=== PATIENT | male | born 1945 | race Caucasian/White ===

== ENCOUNTER 2022-07-22 10:24 | Outpatient (REF) | payer OTHER, SELFPAY ==
[2022-07-22 11:59] LABS: Hematocrit 38.6 % (42.0-52.0); Hemoglobin 13.7 g/dl (14.0-18.0); Mean Corpuscular HGB Conc 35.5 g/dl (31.0-36.0); Mean Corpuscular Hemoglobin 35.3 pg (27.0-33.0); Mean Corpuscular Volume 99.5 fL (80.0-98.0); Mean Platelet Volume 9.9 fL (9.4-12.4); Platelet Count 146 X10*3/uL (160-400); Red Blood Count 3.88 X10*6/uL (4.60-5.80); Red Cell Distribution Width 14.4 % (11.0-16.0); White Blood Count 4.5 X10*3/uL (4.8-10.8)
[2022-07-22 12:08] LABS: INTERNATIONAL NORM RATIO 1.1 (0.9-1.1); Prothrombin Time 12.7 SEC (10.0-13.1)
[2022-07-22 12:11] LABS: Estimated Average Glucose 148 mg/dL; Hemoglobin A1c % 6.8 %
[2022-07-24 07:25] LABS: HBS Num1 0.35 mIU/mL (0-7.99); HBc Num1 0.07 S/CO (0.00-0.79); HBsAGNum1 0.35 S/CO (0.00-0.99); Hepatitis B Core Antibody Nonreactive (Nonreactive); Hepatitis B Surface Antigen Negative (Negative); ~HepC Num1 0.09 S/CO (0.00-0.79); ~Hepatitis B Surface Antibody NONREACTIVE (Nonreactive); ~Hepatitis C Antibody Nonreactive (Nonreactive)
[2022-07-24 07:56] LABS: Hepatitis A Antibody IgG REACTIVE (Nonreactive); ~Hepatitis A Antibody IgG 1.94 S/CO (0.00-0.99)
[2022-07-24 23:04] LABS: Immunoglobulin A 785 mg/dL (70-320)
[2022-07-25 09:19] LABS: Transglutaminase IgA <1.0 U/mL
== END 2022-07-22 10:25 | disposition home or self-care (01) ==
LOC: HO.LAB 10:24
PROVIDERS: PCP Internal Medicine; Visit Provider Internal Medicine
DX: K74.60 Unspecified cirrhosis of liver (principal); K76.82 Hepatic encephalopathy; E66.9 Obesity, unspecified; E11.9 Type 2 diabetes mellitus without complications; I50.9 Heart failure, unspecified
CPT/HCPCS: 36415; 82784; 83036; 85027; 85610; 86364; 86704; 86706; 86708; 86803; 87340

== ENCOUNTER 2022-09-02 13:38 | Outpatient (AMB) | payer OTHER, SELFPAY ==
--- NOTE | 2022-09-02 13:42 | MHC.OFFVIS ---
Intake Vital Signs 09/02/22 13:45 Height 5 ft 5 in Weight 282 lb 3.067 oz BMI 47.0 BP 116/56 L Blood Pressure Location Lt brachial Position Sitting Pulse 94 Intake Visit Reasons: 6 week fu-leave as 30min pro req Intake Note: Luis presents in the office as a 6 week follow up. CC: is with him - she states that he has a lot of gas and cramps in his right hand that happen often. She is not sure if this is connected. 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 07/22/22: Had weight loss surgery 4 years ago during which cirrhosis of the liver was discovered. Has been seeing Dr Pascual, here for second opinion. 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 No hx of significant drinking. No fam or personal hx of autoimmune disease, iron overload, early pulmonary or neuropsychiatric diseases. Pt had first episode of hepatic encephalopathy 2 years ago for which he required hosp admission as well. Has been on lactulose. Does not recall developing ascites but does report significant leg edema on most days assoc with shortness of breath on exertion. Last EGD was 4 years ago prior to his surgery. Last US was 2 years ago when he had the hospitalisation. He also sees Dr Desir for cardiomyopathy. We do not have records to ascertain whether he has ischemic cardiomyopathy vs non-ischemic and if LV failure vs RV (raj as he report significant sleep apnea). Family hx: etOH cirrhosis in brother Records reviewed. Has large splenorenal shunt based on previous imaging at [facility]. If HE difficult to control with meds, may need IR referral for shunt embolization eval. However will need EGD before that for variceal surveillance. 09/02/22: Reports has been getting worsening shortness of breath especially on exertion and will be seeing a electronic integrated systems mechanic for further evaluation. Otherwise no gastrointestinal sx. Taking lactulose regularly now and has been having 2 BMs per day consistently. Reports improvement in alertness levels. Labs reviewed, somehow CMP and iron studies not processed. However remaining labs reassuring, no chronic hepatitis. Thrombocytopenia consistent with portal HTN. PFSH Surgical History History of esophagogastroduodenoscopy (EGD) History of weight loss surgery Hx of appendectomy Hx of cholecystectomy Family History Mother HTN (hypertension) Social History Household Members: Spouse Patient Tobacco Use Status: Never used Tobacco Review of Systems Const All systems reviewed & are unremarkable except as noted in HPI and below Physical Exam Vital Signs: Last Vital Signs Pulse 94 09/02/22 13:45 BP 116/56 L 09/02/22 13:45 BMI result Body Mass Index 47.0 Gen Appear: NAD HEENT: No scleral icterus Chest: CTA CVS: Regular S1/S2 no murmurs Abd: soft, nontender, nondistended, no shifting dullness to percussion, bowel sounds active Ext: peripheral edema bilaterally L leg > R leg Neuro: A/Ox3, asterixis + Derm: Spider angioma on chest and palmar erythema noted Assessment & Plan Assessment & Plan (1) Cirrhosis: Code(s): K74.60 - Unspecified cirrhosis of liver (2) Hepatic encephalopathy: Code(s): K76.82 - Hepatic encephalopathy (3) Obesity: Code(s): E66.9 - Obesity, unspecified (4) Heart failure: Code(s): I50.9 - Heart failure, unspecified (5) Diabetes: Code(s): E11.9 - Type 2 diabetes mellitus without complications Plan 1. Decompensated cirrhosis Etiology likely MAFLD/DIALLO given obesity, T2DM and HTN; in the absence of significant etOH use. Records from Dr Desir's office pending to determine if has significant R sided heart failure that could have led to cardiac cirrhosis. HE much better controlled. US Abd not booked yet. Also due for EGD for variceal surveillance. Plan: - Pt and report that they are unsure if further testing beyond consultation will be covered by their insurance and would like to check with their insurance provider before booking US Abd and EGD. - Advised that can get US abd for HCC screening at [facility] as well, and have them fax a copy to our office - May also need to adjust diuretics based on those results - For EGD coverage, pt or will call once they have more information. - Unable to calculate MELD as CMP not processed. Will await call back re insurance coverage, to book EGD and follow up visit Coding Level of Care Code Est Pt Level 4 (24781) Diagnoses Cirrhosis K74.60 Hepatic encephalopathy K76.82 Obesity E66.9 Heart failure I50.9 Diabetes E11.9
[2022-09-02 13:45] VITALS: BP 116/56; PULSE 94; BMI 47.0
== END 2022-09-02 14:35 | disposition home or self-care (01) ==
PROVIDERS: PCP Internal Medicine; Visit Provider Internal Medicine
DX: K74.60 Unspecified cirrhosis of liver (principal); K76.82 Hepatic encephalopathy; E66.9 Obesity, unspecified; I50.9 Heart failure, unspecified; E11.9 Type 2 diabetes mellitus without complications
CPT/HCPCS: 99214

== ENCOUNTER → 2022-09-02 13:38 | Outpatient (BNVA) | payer OTHER, SELFPAY | PROVIDERS: PCP Internal Medicine; Visit Provider Internal Medicine ==

== ENCOUNTER 2022-11-15 12:53 | Outpatient (REF) | payer OTHER, SELFPAY ==
--- NOTE | ~2022-11-15 | US_ITS ---
EXAMINATION: US ABDOMEN COMPLETE CLINICAL INFORMATION: Unspecified cirrhosis of liver. COMPARISON: None available. TECHNIQUE: Real-time imaging of the abdominal viscera. Severely limited visualization due to bowel gas. FINDINGS: PANCREAS: Poorly visualized. ABDOMINAL AORTA: Poorly visualized. INFERIOR VENA CAVA: Visualized portions are normal. LIVER: Diffuse increase in echogenicity and heterogeneity of the liver with a nodular hepatic contour, characteristic of primary hepatocellular disease, possibly due to hepatic steatosis and/or cirrhosis and severely limits visualization. GALLBLADDER: Surgically absent. COMMON BILE DUCT: Normal in caliber measuring 0.6 cm in diameter. RIGHT KIDNEY: No hydronephrosis. No renal calculi. Limited visualization. The kidney measures 12.3 cm in maximum dimension. LEFT KIDNEY: No hydronephrosis. No renal calculi. Limited visualization. The kidney measures 11.0 cm in maximum dimension. SPLEEN: Splenomegaly. The spleen measures 13.4 cm in maximum dimension. FREE FLUID: None. ADDITIONAL FINDINGS: Incidental note of prominent vascular structures in the left upper quadrant, possibly splenorenal varices, difficult to evaluate due to limited visualization. US/US abdomen complete IMPRESSION: 1. Diffuse increase in echogenicity and heterogeneity of the liver with a nodular hepatic contour, characteristic of primary hepatocellular disease, possibly due to hepatic steatosis and/or cirrhosis and severely limits visualization. 2. Splenomegaly. 3. Gallbladder surgically absent. 4. Incidental note of prominent vascular structures in the left upper quadrant, concerning for splenorenal varices, difficult to evaluate due to limited visualization. Dedicated CT scan or MRI recommended for further evaluation. This study was presented today, 11/20/2022 at 12:00 PM for interpretation. PSA staff will provide results to referring provider at this time.
== END 2022-11-15 12:54 | disposition home or self-care (01) ==
LOC: HO.US 12:53
PROVIDERS: PCP Internal Medicine; Visit Provider Internal Medicine
DX: K74.60 Unspecified cirrhosis of liver (principal)
CPT/HCPCS: 76700

== ENCOUNTER 2022-12-10 11:18 | Day surgery (SDC) | payer MEDICARE, SELFPAY ==
--- NOTE | 2022-12-09 08:31 | HO.ANESPROP2 ---
Documented by User: Radha Tineo NP 12/09/22 11:49 HPI - Anesthesia Eval Consult details Narrative: 77yo M for Upper Endoscopy Cirrhosis ? d/t DIALLO. On lactulose, spironolactone Follows [facility] for CHF. Last seen 11/11/22. Cardiac stable. Defers to pulmo for chronic AYALA and ? narcoleptic symptoms Follows outside pulmo. Last seen 11/19/22. PFT nml, nml CXR, ? narcolepsy vs poorly treated RIK - pending testing [facility] Active Problems Active Problems: All Active Problems (Updated 12/06/22 @ 10:59 by Callie Scott, KIM) Diabetes (Acute) Heart failure (Acute) Obesity (Acute) Hepatic encephalopathy (Acute) Cirrhosis (Acute) Past Medical History Medical History Periodic limb movement disorder Chronic rhinitis Anxiety HTN (hypertension) Sleep apnea Spinal stenosis BPH (benign prostatic hyperplasia) Dilated aortic root Faintness Osteoarthritis of knee Lumbar radicular pain Pulmonary nodules Chronic pain of left knee Morbid obesity Vitamin D deficiency Anemia Intestinal malabsorption following gastrectomy Chronic pancreatitis Ureteral calculus, left DIALLO (nonalcoholic steatohepatitis) CHF (congestive heart failure) Diabetes Family History Family History Mother HTN (hypertension) Surgical History Surgical History History of weight loss surgery Hx of appendectomy Hx of cholecystectomy History of esophagogastroduodenoscopy (EGD) Social History Social History Household Members: Spouse Patient Tobacco Use Status: Never used Tobacco Use of substances other than those prescribed or required for medical reasons: No Advance Directives: No Advance Directives Information Provided: Yes Meds Allergies Allergy/AdvReac Type Severity Reaction Status Date / Time No Known Allergies Allergy Verified 12/10/22 12:19 Home Medications Medication Instructions Recorded Confirmed Last Taken Type atorvastatin 10 mg tablet 10 mg PO DAILY 07/22/22 12/10/22 12/09/22 History carvedilol 3.125 mg tablet 3.125 mg PO BID 07/22/22 12/10/22 12/09/22 History citalopram 40 mg tablet 40 mg PO DAILY 07/22/22 12/10/22 12/09/22 History empagliflozin 10 mg tablet 10 mg PO DAILY 07/22/22 12/10/22 12/09/22 History (Jardiance) gabapentin 300 mg capsule 300 mg PO TID 07/22/22 12/10/22 12/09/22 History glipizide 2.5 mg tablet, extended 2.5 mg PO DAILY 07/22/22 12/10/22 12/09/22 History release 24 hr lactulose 10 gram/15 mL oral 30 ml PO TID 07/22/22 12/10/22 12/09/22 History solution (Enulose) spironolactone 50 mg tablet 50 mg PO DAILY 07/22/22 12/10/22 12/09/22 History tamsulosin 0.4 mg capsule 0.8 mg PO DAILY 07/22/22 12/10/22 12/09/22 History furosemide 20 mg tablet 60 mg PO DAILY 09/02/22 12/10/22 12/09/22 History Exam Exam Date and Time: December 09, 2022 0831 Pertinent Lab Results Pertinent Lab Results: Laboratory Tests 07/22/22 11:40 WBC 4.5 L Hgb 13.7 L Hct 38.6 L Plt Count 146 L Narrative Narrative: US abdomen complete 11/2022 IMPRESSION: 1. Diffuse increase in echogenicity and heterogeneity of the liver with a nodular hepatic contour, characteristic of primary hepatocellular disease, possibly due to hepatic steatosis and/or cirrhosis and severely limits visualization. 2. Splenomegaly. 3. Gallbladder surgically absent. 4. Incidental note of prominent vascular structures in the left upper quadrant, concerning for splenorenal varices, difficult to evaluate due to limited visualization. Dedicated CT scan or MRI recommended for further evaluation. EKG 11/2021 NSR @ 75 Prolonged QT ECHO 11/2021 1. Contrast was used 2. Nml LV chamber size. Mild concentric LVH. Nml regional wall motion. Nml LV systolic function. LVEF 60-65%. Grade 2 DD 3. RV nml in size and function 4. Severely dilated LA 5. Mild mitral stenosis. Trace mitral regurg 6. Ascending aota dilatation. (4.1cm) PFT 08/2022 Nml Assessment and Plan Assessment Anesthesia Assessment: Chart Reviewed Documented by User: Jeanine Black MD 12/10/22 12:55 PMFSH Past Medical History Medical History Periodic limb movement disorder Chronic rhinitis Anxiety HTN (hypertension) Sleep apnea Spinal stenosis BPH (benign prostatic hyperplasia) Dilated aortic root Faintness Osteoarthritis of knee Lumbar radicular pain Pulmonary nodules Chronic pain of left knee Morbid obesity Vitamin D deficiency Anemia Intestinal malabsorption following gastrectomy Chronic pancreatitis Ureteral calculus, left DIALLO (nonalcoholic steatohepatitis) CHF (congestive heart failure) Diabetes Family History Family History Mother HTN (hypertension) Family history of problems with anesthesia: No Surgical History Surgical History History of weight loss surgery Hx of appendectomy Hx of cholecystectomy History of esophagogastroduodenoscopy (EGD) History of Problems with Anesthesia: No Social History Social History Household Members: Spouse Patient Tobacco Use Status: Never used Tobacco Use of substances other than those prescribed or required for medical reasons: No Advance Directives: No Advance Directives Information Provided: Yes Meds Allergies Allergy/AdvReac Type Severity Reaction Status Date / Time No Known Allergies Allergy Verified 12/10/22 12:19 Home Medications Medication Instructions Recorded Confirmed Last Taken Type atorvastatin 10 mg tablet 10 mg PO DAILY 07/22/22 12/10/22 12/09/22 History carvedilol 3.125 mg tablet 3.125 mg PO BID 07/22/22 12/10/22 12/09/22 History citalopram 40 mg tablet 40 mg PO DAILY 07/22/22 12/10/22 12/09/22 History empagliflozin 10 mg tablet 10 mg PO DAILY 07/22/22 12/10/22 12/09/22 History (Jardiance) gabapentin 300 mg capsule 300 mg PO TID 07/22/22 12/10/2223 History glipizide 2.5 mg tablet, extended 2.5 mg PO DAILY 07/22/22 12/10/22 12/09/22 History release 24 hr lactulose 10 gram/15 mL oral 30 ml PO TID 07/22/22 12/10/22 12/09/22 History solution (Enulose) spironolactone 50 mg tablet 50 mg PO DAILY 07/22/22 12/10/22 12/09/22 History tamsulosin 0.4 mg capsule 0.8 mg PO DAILY 07/22/22 12/10/22 12/09/22 History furosemide 20 mg tablet 60 mg PO DAILY 09/02/22 12/10/22 12/09/22 History Exam Airway Mallampati Class: III TM Dist: >3cm Neck ROM: Full Denture: Upper and Lower Lungs: scattered fine crackles at the bases Assessment and Plan Assessment Anesthesia Assessment: Anesthesia Plan Discussed Final Anesthetic Review Family History of Problems with Anesthesia: No History of Problems with Anesthesia: No NPO: Yes ASA Class: III Final Preanesthetic Review: No Changes in Pt Med Stat, Meds/Allgs Chart Reviewed, Consent Obtained/Reviewed and Anes Risks/Benef Reviewed Patient Risk: Intermediate Procedure Risk: Low Anesthetic Plan Anesthetic Plan: MAC: Disposition: Standard PACU
[2022-12-10 11:43] VITALS: BMI 46.6
[2022-12-10 12:14] VITALS: BP 126/57; PULSE 70; RESP 16; TEMP 36.2; O2SAT 100
[2022-12-10] MEDS: Lactated Ringers 1,000 ML 50 ML IVCONT (12:23)
[2022-12-10 12:26] LABS: Glucose, Whole Blood 140 mg/dL (60-115)
--- NOTE | 2022-12-10 12:52 | MHC.SHP ---
Pre-Procedural Eval Section A Date of Service: 12/10/22 Section B Chief Complaint: Cirrhosis Details of Present Illness: PMH: heart failure obesity BMI 46 RIK decompensated cirrhosis (hepatic encephalopathy) former smoker Relevant Social History: None Present Medications: see Short Stay Collaborative assessment Allergies: Allergies Allergy/AdvReac Type Severity Reaction Status Date / Time No Known Allergies Allergy Verified 12/10/22 12:19 Review of Systems Review of Systems Comment: 10 point ROS negative Exam Exam Comment: Gen appear: No acute distress HEENT: no icterus Chest: No overt resp distress Abd: soft, nontender, nondistended Psych: Stable affect, answering questions appropriately Neuro: A/Ox3 noted to move all extremities spontaneously Ext: no peripheral edema Plan Diagnosis/Plan: Unchanged I have reviewed the history and physical and performed a pertinent physical examination on my patient. No changes have occurred unless specified. Time Spent With Patient Time: Total time managing care of this patient today ____ minutes.
--- NOTE | 2022-12-10 12:53 | P.OP_ITS ---
Operative Note Operative Note Date of Service: 12/10/22 Narrative: Procedure: Esophagogastroduodenoscopy Endoscopist: Rachele Andrea MD Indication: Cirrhosis Anesthesia Provider: Dr Pj Black Anesthesia Type: MAC ?? EGD Procedure:?? The procedure, indications, preparation and potential complications were reviewed with the patient, who indicated understanding and gave written informed consent to proceed. A physical exam was performed. The endoscope was introduced through the mouth, and advanced to the second part of duodenum. The mucosa was carefully examined on slow withdrawal of the endoscope. The patient tolerated the procedure well. There were no immediate complications.? ? EGD Findings:? * Esophagus:? Linear erosions measuring > 5mm were noted at the GE junction. The Z line was at 40 cm. A moderate sized hiatal hernia was noted. * Stomach:? Diffuse congestion and erythema in mosaic pattern consistent with portal hypertensive gastropathy was noted in the whole stomach. Retroflexion in the fundus showed Hill grade III hiatal hernia. * Duodenum:? Normal mucosa was noted in the whole of the examined duodenum. EGD Impressions:? * Grade B esophagitis * Hiatal hernia * Portal hypertensive gastropathy * Normal duodenum ?? Recommendations:?? * Start PPI therapy. * Avoid NSAIDs. * Cont carvedilol 3.125 BID * Repeat EGD in 2 years for variceal surveillance given decompensated cirrhosis Above has been reviewed with the patient.
[2022-12-10 13:31] VITALS: BP 124/61; PULSE 69; RESP 13; TEMP 36.6; O2SAT 100
[2022-12-10 13:46] VITALS: BP 120/53; PULSE 73; RESP 18; TEMP 36.6; O2SAT 98
== END 2022-12-10 14:19 | disposition home or self-care (01) ==
PROVIDERS: PCP Internal Medicine; Visit Provider Internal Medicine
PROC: 0DJ08ZZ Inspection of Upper Intestinal Tract, Via Natural or Artificial Opening Endoscopic (ICD-10-PCS; CPT 43235; principal; 2022-12-10 12:50)
DX: K74.60 Unspecified cirrhosis of liver (principal); K76.82 Hepatic encephalopathy; K75.81 Nonalcoholic steatohepatitis (NASH); K44.9 Diaphragmatic hernia without obstruction or gangrene; K20.80 Other esophagitis without bleeding; K76.6 Portal hypertension; K31.89 Other diseases of stomach and duodenum; I11.0 Hypertensive heart disease with heart failure; I50.9 Heart failure, unspecified; E66.01 Morbid (severe) obesity due to excess calories; Z68.42 Body mass index [BMI] 45.0-49.9, adult; R16.1 Splenomegaly, not elsewhere classified; G47.33 Obstructive sleep apnea (adult) (pediatric); E11.9 Type 2 diabetes mellitus without complications; Z79.84 Long term (current) use of oral hypoglycemic drugs; Z79.899 Other long term (current) drug therapy; Z90.49 Acquired absence of other specified parts of digestive tract; Z98.890 Other specified postprocedural states
CPT/HCPCS: 43235; 82947; J3010

== ENCOUNTER → 2022-12-10 11:18 | Outpatient (BNV) | payer MEDICARE, SELFPAY | PROVIDERS: PCP Internal Medicine; Visit Provider Internal Medicine | DX: K74.69 Other cirrhosis of liver (principal); K76.6 Portal hypertension; K20.90 Esophagitis, unspecified without bleeding | CPT/HCPCS: 43235 ==

== ENCOUNTER 2023-03-21 14:26 | Outpatient (AMB) | payer MEDICARE, SELFPAY ==
--- NOTE | 2023-03-21 14:38 | A.OFFVIS_ITS ---
Intake Vital Signs 03/21/23 14:40 Height 5 ft 5 in Weight 276 lb BMI 45.9 BP 107/41 L Blood Pressure Location Lt brachial Position Sitting Pulse 74 Intake Visit Reasons: f/u Intake Note: Patient follow up for Cirrhosis and EGD results. Patient cc: abdominal discomfort, GERD, and denies any other GI issues. Agricultural Researcher Required: No Accompanied by: Spouse Allergies No Known Allergies Allergy (Verified 03/21/23 14:36) HPI HPI Comments History of Present Illness Details 77y.o M with PMH of reported heart failu re, obesity BMI 46, RIK and recent dx of decompensated cirrhosis (hepatic encephalopathy), former smoker. 07/22/22: Had weight loss surgery 4 years ago during which cirrhosis of the liver was discovered. Has been seeing Dr Pascual, here for second opinion. 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 No hx of significant drinking. No fam or personal hx of autoimmune disease, iron overload, early pulmonary or neuropsychiatric diseases. Pt had first episode of hepatic encephalopathy 2 years ago for which he required hosp admission as well. Has been on lactulose. Does not recall developing ascites but does report significant leg edema on most days assoc with shortness of breath on exertion. Last EGD was 4 years ago prior to his surgery. Last US was 2 years ago when he had the hospitalisation. He also sees Dr Desir for cardiomyopathy. We do not have records to ascertain whether he has ischemic cardiomyopathy vs non-ischemic and if LV failure vs RV (raj as he report significant sleep apnea). Family hx: etOH cirrhosis in brother Records reviewed. Has large splenorenal shunt based on previous imaging at [facility]. If HE difficult to control with meds, may need IR referral for shunt embolization eval. However will need EGD before that for variceal surveillance. 09/02/22: Reports has been getting worsening shortness of breath especially on exertion and will be seeing a occupational psychologist for further evaluation. Otherwise no gastrointestinal sx. Taking lactulose regularly now and has been having 2 BMs per day consistently. Reports improvement in alertness levels. Labs reviewed, somehow CMP and iron studies not processed. However remaining labs reassuring, no chronic hepatitis. Thrombocytopenia consistent with portal HTN. 12/10/22: EGD EGD Impressions:? * Grade B esophagitis * Hiatal hernia * Portal hypertensive gastropathy * Normal duodenum 03/21/23: Was admitted to [facility] in Dec 2022 for hepatic encephalopathy thought to be from UTI. Admitted for 5 days - was given ABx and lactulose dose was increased. reports this is his 1st hospitalization for hepatic encephalopathy. To note, patient has a known splenorenal shunt based on ultrasound and previous CAT scans. Current medications: Furosemide 60 mg Spironolactone 50 mg Lactulose 45+ 45+ 30 mL Patient reports discontinuation of carvedilol for more than 3 months, unaware of why it was discontinued. Today, reports that seems a bit off than his baseline. Does not report abd pain, nausea, vomiting, change in bowel habits. Has been taking his medications as above. [facility] Medical History Periodic limb movement disorder Chronic rhinitis Anxiety HTN (hypertension) Sleep apnea Spinal stenosis BPH (benign prostatic hyperplasia) Dilated aortic root Faintness Osteoarthritis of knee Lumbar radicular pain Pulmonary nodules Chronic pain of left knee Morbid obesity Vitamin D deficiency Anemia Intestinal malabsorption following gastrectomy Chronic pancreatitis Ureteral calculus, left DIALLO (nonalcoholic steatohepatitis) CHF (congestive heart failure) Diabetes Surgical History History of weight loss surgery Hx of appendectomy Hx of cholecystectomy History of esophagogastroduodenoscopy (EGD) Family History Mother HTN (hypertension) Social History Household Members: Spouse Patient Tobacco Use Status: Never used Tobacco Review of Systems Const All systems reviewed & are unremarkable except as noted in HPI and below Physical Exam Vital Signs: Last Vital Signs Pulse 74 03/21/23 14:40 BP 107/41 L 03/21/23 14:40 BMI result Body Mass Index 45.9 Gen Appear: NAD, presenting in wheelchair HEENT: No scleral icterus Chest: CTA Abd: soft, nontender, nondistended, Ext: peripheral edema bilaterally L leg > R leg Neuro: A/Ox3, asterixis + Derm: Spider angioma on chest and palmar erythema noted Assessment & Plan Assessment & Plan (1) Cirrhosis: Code(s): K74.60 - Unspecified cirrhosis of liver (2) Hepatic encephalopathy: Code(s): K76.82 - Hepatic encephalopathy (3) Obesity: Code(s): E66.9 - Obesity, unspecified (4) Heart failure: Code(s): I50.9 - Heart failure, unspecified (5) Diabetes: Code(s): E11.9 - Type 2 diabetes mellitus without complications Plan 1. Decompensated cirrhosis Etiology likely MAFLD/DIALLO given obesity, T2DM and HTN and possibly due to cardiac cirrhosis; in the absence of significant etOH use. Mild encephalopathy on exam today. Counseled on taking lactulose for goal 2-3 bowel movements per day. Also work on getting him rifaximin in addition to this. If has more than 2 admissions for encephalopathy with the next 6 months, low threshold to refer for IR evaluation for obliteration of splenorenal shunt. Plan: - continue lactulose, for goal 2-3 bowel movements every day - rifaximin 550 mg b.i.d. to be started, will see if PA needed - updated meld labs - will likely need to adjust diuretics, however will wait for BMP as above - patient also requests to get a urinalysis done, which has been ordered Follow-up in 8 weeks Orders: Orders Complete Blood Count no Diff 03/21/23 K74.60 - Unspecified cirrhosis of liver Comprehensive Met. Panel 03/21/23 K74.60 - Unspecified cirrhosis of liver Prothrombin Time INR 03/21/23 K74.60 - Unspecified cirrhosis of liver UA and rflx microscopic 03/21/23 N39.0 - Urinary tract infection, site not specified Medications: New rifaximin 550 mg PO BID 60 tabs 3RF 30 days K76.82 - Hepatic encephalopathy Coding Level of Care Code Est Pt Level 5 (10153) Diagnoses Cirrhosis K74.60 Hepatic encephalopathy K76.82 Obesity E66.9 Heart failure I50.9 Diabetes E11.9
[2023-03-21 14:40] VITALS: BP 107/41; PULSE 74; BMI 45.9
== END 2023-03-21 15:25 | disposition home or self-care (01) ==
PROVIDERS: PCP Internal Medicine; Visit Provider Internal Medicine
DX: K74.60 Unspecified cirrhosis of liver (principal); K76.82 Hepatic encephalopathy; E66.9 Obesity, unspecified; Z68.42 Body mass index [BMI] 45.0-49.9, adult; E11.9 Type 2 diabetes mellitus without complications
CPT/HCPCS: 99214

== ENCOUNTER 2023-03-21 14:26 | Outpatient (REF) | payer MEDICARE, SELFPAY ==
[2023-03-21 16:21] LABS: Hematocrit 38.4 % (42.0-52.0); Hemoglobin 13.6 g/dl (14.0-18.0); Mean Corpuscular HGB Conc 35.4 g/dl (31.0-36.0); Mean Corpuscular Volume 101.6 fL (80.0-98.0); Mean Platelet Volume 10.4 fL (9.4-12.4); Platelet Count 127 X10*3/uL (160-400); Red Blood Count 3.78 X10*6/uL (4.60-5.80); Red Cell Distribution Width 14.6 % (11.0-16.0); White Blood Count 4.7 X10*3/uL (4.8-10.8)
[2023-03-21 16:26] LABS: INTERNATIONAL NORM RATIO 1.2 (0.9-1.1); Prothrombin Time 14.2 SEC (11.1-13.3)
[2023-03-21 17:15] LABS: Alanine Aminotransferase 34 U/L (0-40); Albumin Level 2.9 g/dL (3.5-5.0); Alkaline Phosphatase 120 U/L (39-117); Anion Gap 11 (12-20); Aspartate Amino Transferase 39 U/L (5-37); Bilirubin Total 2.1 mg/dL (0.0-1.0); Blood Urea Nitrogen 21 mg/dL (9-16); Calcium 8.8 mg/dL (8.4-10.2); Carbon Dioxide 26 mmol/L (22-29); Chloride 104 mmol/L (96-108); Estimated Glomerular Filt Rate > 60; Glucose Random 221 mg/dL (60-115); Potassium 3.8 mmol/L (3.3-5.1); Sodium 137 mmol/L (135-145); Total Protein 5.8 g/dL (6.5-8.0)
[2023-03-21 17:45] LABS: Appearance Urine Clear; Color Urine Yellow; Glucose Urine UA >=1000 mg/dL (Negative); Leukocyte Esterase Urine Trace (Negative); Nitrite Urine Negative (Negative); Specific Gravity - Urine 1.015 (1.005-1.025); UMIC TRIGGER UA YES; Urine Blood Negative (Negative); Urine Ketones Negative (Negative); Urine Protein Negative (Neg-Trace)
[2023-03-21 17:47] LABS: Bacteria Urine None Seen (None Seen); Hyaline Casts Urine 0-2 /LPF (0-2); RBC Urine 0-2 /HPF (0-2); Squamous Epithelial Cell Urine 0-2 /HPF (0-2); WBC Urine 0-5 /HPF (0-5)
== END 2023-03-21 14:27 | disposition home or self-care (01) ==
LOC: HO.LAB 14:26
PROVIDERS: PCP Internal Medicine; Visit Provider Internal Medicine
DX: K74.60 Unspecified cirrhosis of liver (principal); N39.0 Urinary tract infection, site not specified; K21.9 Gastro-esophageal reflux disease without esophagitis; R10.9 Unspecified abdominal pain; E66.9 Obesity, unspecified; G47.33 Obstructive sleep apnea (adult) (pediatric); K76.82 Hepatic encephalopathy; I11.0 Hypertensive heart disease with heart failure; I50.9 Heart failure, unspecified; E11.9 Type 2 diabetes mellitus without complications; Z68.42 Body mass index [BMI] 45.0-49.9, adult
CPT/HCPCS: 36415; 80053; 81001; 85027; 85610; 99212

== ENCOUNTER 2023-05-02 10:51 | Outpatient (REF) | payer MEDICARE, SELFPAY ==
--- NOTE | ~2023-05-02 | US_ITS ---
EXAMINATION: US ABDOMEN COMPLETE CLINICAL INFORMATION: Unspecified cirrhosis of the liver. COMPARISON: Ultrasound abdomen complete 11/15/2022. TECHNIQUE: Real-time imaging of the abdominal viscera. Technically difficult study secondary to bowel gas and body habitus. FINDINGS: PANCREAS: Poorly visualized. ABDOMINAL AORTA: Poorly visualized. INFERIOR VENA CAVA: Visualized portions are normal. LIVER: Increased hepatic parenchymal heterogeneity and echogenicity could be associated with hepatocellular disease/hepatic steatosis and severely limits visualization. Right hepatic lobe measures 14.6 cm in sagittal dimension. Correlation with liver function tests and clinical exam recommended to determine further management. GALLBLADDER: Surgically absent. COMMON BILE DUCT: Not visualized. RIGHT KIDNEY: No hydronephrosis. No renal calculi. Limited visualization. The kidney measures 10.3 cm in maximum dimension. LEFT KIDNEY: No hydronephrosis. No renal calculi. Limited visualization. The kidney measures 9.7 cm in maximum dimension. SPLEEN: The spleen measures 12.3 cm in maximum dimension. FREE FLUID: None. US/US abdomen complete IMPRESSION: 1. Increased hepatic parenchymal heterogeneity and echogenicity could be associated with hepatocellular disease/hepatic steatosis and severely limits visualization. Correlation with liver function tests and clinical exam recommended to determine further management. 2. Gallbladder surgically absent.
[2023-05-02 13:39] LABS: Alanine Aminotransferase 24 U/L (0-40); Alkaline Phosphatase 146 U/L (39-117); Anion Gap 13 (12-20); Aspartate Amino Transferase 29 U/L (5-37); Bilirubin Total 2.6 mg/dL (0.0-1.0); Blood Urea Nitrogen 15 mg/dL (9-16); Calcium 8.7 mg/dL (8.4-10.2); Carbon Dioxide 25 mmol/L (22-29); Chloride 103 mmol/L (96-108); Cholesterol 110 mg/dL (<200); Estimated Glomerular Filt Rate > 60; Glucose Random 162 mg/dL (60-115); HDL Cholesterol 54 mg/dL (>40); Iron 172 mcg/dL (45-160); LDL Cholesterol Calculated 44 mg/dL (<100); Percent Iron Saturation 81 % (15-50); Potassium 3.5 mmol/L (3.3-5.1); Sodium 137 mmol/L (135-145); Total Iron Binding Capacity 212 mcg/dL (228-428); Total Protein 5.7 g/dL (6.5-8.0); Triglycerides 61 mg/dL (<150); Unsaturated Iron Binding 40 ug/dL
[2023-05-02 13:56] LABS: Ferritin 81 ng/mL (20-250)
[2023-05-02 15:15] LABS: Appearance Urine Clear; Color Urine Yellow; Glucose Urine UA >=1000 mg/dL (Negative); Leukocyte Esterase Urine Trace (Negative); Nitrite Urine Negative (Negative); PH 5.5 (5.0-9.0); Specific Gravity - Urine 1.025 (1.005-1.025); UMIC TRIGGER UA YES; Urine Blood Negative (Negative); Urine Ketones Negative (Negative); Urine Protein Negative (Neg-Trace)
[2023-05-02 15:18] LABS: Bacteria Urine None Seen (None Seen); Hyaline Casts Urine 0-2 /LPF (0-2); RBC Urine 0-2 /HPF (0-2); WBC Urine 0-5 /HPF (0-5)
== END 2023-05-02 10:52 | disposition home or self-care (01) ==
LOC: HO.US 10:51
PROVIDERS: PCP Internal Medicine; Visit Provider Internal Medicine
DX: Z13.6 Encounter for screening for cardiovascular disorders (principal); K74.60 Unspecified cirrhosis of liver
CPT/HCPCS: 36415; 76700; 80053; 80061; 81001; 82728; 83540

== ENCOUNTER 2023-05-23 14:18 | Outpatient (AMB) | payer MEDICARE, SELFPAY ==
--- NOTE | 2023-05-23 14:27 | A.OFFVIS_ITS ---
Vital Signs 05/23/23 14:35 Height 5 ft 5 in Weight 579 lb 13.051 oz BMI 96.5 BP 127/58 L Blood Pressure Location Lt brachial Position Sitting Pulse 90 Intake Visit Reasons: 8 weeks Cirrhosis Intake Note: Luis presents in the office as a 8 week follow up. CC: Wants to know if you approve the surgery coming up regarding the back. Do you want him still on zinc? concerns of US - he takes tums and magnesium and they want your thoughts on that. States that he has a reflux after eating that has been going on for some time. Accounts Specialist Required: No Allergies No Known Allergies Allergy (Verified 03/21/23 14:36) HPI Comments Details: 77y.o M with PMH of reported heart failure, obesity BMI 46, RIK and recent dx of decompensated cirrhosis (hepatic encephalopathy), former smoker. 07/22/22: Had weight loss surgery 4 years ago during which cirrhosis of the liver was discovered. Has been seeing Dr Pascual, here for second opinion. 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 No hx of significant drinking. No fam or personal hx of autoimmune disease, iron overload, early pulmonary or neuropsychiatric diseases. Pt had first episode of hepatic encephalopathy 2 years ago for which he required hosp admission as well. Has been on lactulose. Does not recall developing ascites but does report significant leg edema on most days assoc with shortness of breath on exertion. Last EGD was 4 years ago prior to his surgery. Last US was 2 years ago when he had the hospitalisation. He also sees Dr Desir for cardiomyopathy. We do not have records to ascertain whether he has ischemic cardiomyopathy vs non-ischemic and if LV failure vs RV (raj as he report significant sleep apnea). Family hx: etOH cirrhosis in brother Records reviewed. Has large splenorenal shunt based on previous imaging at [facility]. If HE difficult to control with meds, may need IR referral for shunt embolizat ion eval. However will need EGD before that for variceal surveillance. 09/02/22: Reports has been getting worsening shortness of breath especially on exertion and will be seeing a garment alteration examiner for further evaluation. Otherwise no gastrointestinal sx. Taking lactulose regularly now and has been having 2 BMs per day consistently. Reports improvement in alertness levels. Labs reviewed, somehow CMP and iron studies not processed. However remaining labs reassuring, no chronic hepatitis. Thrombocytopenia consistent with portal HTN. 12/10/22: EGD EGD Impressions:? * Grade B esophagitis * Hiatal hernia * Portal hypertensive gastropathy * Normal duodenum 03/21/23: Was admitted to [facility] in Dec 2022 for hepatic encephalopathy thought to be from UTI. Admitted for 5 days - was given ABx and lactulose dose was increase d. reports this is his 1st hospitalization for hepatic encephalopathy. To note, patient has a known splenorenal shunt based on ultrasound and previous CAT scans. Current medications: Furosemide 60 mg Spironolactone 50 mg Lactulose 45+ 45+ 30 mL Patient reports discontinuation of carvedilol for more than 3 months, unaware of why it was discontinued. Today, reports that seems a bit off than his baseline. Does not report abd pain, nausea, vomiting, change in bowel habits. Has been taking his medications as above. Addendum to previous note on 05/15/23: MELD-Na 12 -- 6% 90d mortality Child Latif Class B - 8 points Has upcoming spinal decompression procedure with Dr Nascimento. Reviewed risk assessment over the phone on 05/15/23 as above. Avoid excess IVF - albumin preferred. Avoid opiates, benzos. Avoid sudden BP shifts to protect kidney function. Ok to give platelets and Vit K if needed. 05/23/23: Here for routine follow up. No further episodes of encoephalopathy since last seen. Rifaximin not approved by insurance but has been started on Zn supplements. Reviewed that did review his risk assessment with Dr Nascimento on 05/14. He tells me that also seeing Cardiology for clearance. 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 Reports intermittent heartburn. Labs and US results reviewed. [facility] Medical History Periodic limb movement disorder Chronic rhinitis Anxiety HTN (hypertension) Sleep apnea Spinal stenosis BPH (benign prostatic hyperplasia) Dilated aortic root Faintness Osteoarthritis of knee Lumbar radicular pain Pulmonary nodules Chronic pain of left knee Morbid obesity Vitamin D deficiency Anemia Intestinal malabsorption following gastrectomy Chronic pancreatitis Ureteral calculus, left DIALLO (nonalcoholic steatohepatitis) CHF (congestive heart failure) Diabetes Surgical History History of weight loss surgery Hx of appendectomy Hx of cholecystectomy History of esophagogastroduodenoscopy (EGD) Family History Mother HTN (hypertension) Social History Household Members: Spouse Patient Tobacco Use Status: Never used Tobacco Review of Systems Const All systems reviewed & are unremarkable except as noted in HPI and below Physical Exam Vital Signs: Last Vital Signs Pulse 90 05/23/23 14:35 BP 127/58 L 05/23/23 14:35 BMI result Body Mass Index 96.5 Gen Appear: NAD, presenting in wheelchair HEENT: No scleral icterus Chest: CTA Abd: soft, nontender, nondistended, Ext: peripheral edema bilaterally L leg > R leg Neuro: A/Ox3, no asterixis Derm: Spider angioma on chest and palmar erythema noted Assessment & Plan Assessment & Plan (1) Cirrhosis: Code(s): K74.60 - Unspecified cirrhosis of liver Category: Medical (2) Hepatic encephalopathy: Code(s): K76.82 - Hepatic encephalopathy Category: Medical (3) Obesity: Code(s): E66.9 - Obesity, unspecified Category: Medical (4) Heart failure: Code(s): I50.9 - Heart failure, unspecified Category: Medical (5) Diabetes: Code(s): E11.9 - Type 2 diabetes mellitus without complications Category: Medical (6) GERD (gastroesophageal reflux disease): Code(s): K21.9 - Gastro-esophageal reflux disease without esophagitis Category: Medical Plan 1. Decompensated cirrhosis MELD-Na 12 -- 6% 90d mortality Child Latif Class B - 8 points Etiology likely MAFLD/DIALLO given obesity, T2DM and HTN and possibly due to car diac cirrhosis; in the absence of significant etOH use. No encephalopathy on exam today. Counseled on taking lactulose for goal 2-3 bowel movements per day. Zinc supplementation. Rifaximin not covered by insurance. If has more than 2 admissions for encephalopathy with the next 6 months, low threshold to refer for IR evaluation for obliteration of splenorenal shunt. US Abd reviewed. Will cont q6m screenings. Plan: - continue lactulose, for goal 2-3 bowel movements every day - Zinc supplementation - No change to diuretics at this time - Pt to check with Deputy Clerk Of Court re ? holding carvedilol. If no reservations from their standpoint recommend resuming coreg 6.25 BID - Next EGD for variceal surveillance due 11/2024 - Next US for HCC screening due 11/2023 - Omeprazole 20mg PO once daily started for GERD Follow-up in 4 months Medications: New omeprazole 20 mg PO DAILY 90 caps 0RF Coding Level of Care Code Est Pt Level 5 (97181) Diagnoses Cirrhosis K74.60 Hepatic encephalopathy K76.82 Obesity E66.9 Heart failure I50.9 Diabetes E11.9 GERD (gastroesophageal reflux disease) K21.9
[2023-05-23 14:35] VITALS: BP 127/58; PULSE 90; BMI 96.5
== END 2023-05-23 15:03 | disposition home or self-care (01) ==
PROVIDERS: PCP Internal Medicine; Visit Provider Internal Medicine
DX: K74.60 Unspecified cirrhosis of liver (principal); K76.82 Hepatic encephalopathy; I50.9 Heart failure, unspecified; K21.9 Gastro-esophageal reflux disease without esophagitis; E11.9 Type 2 diabetes mellitus without complications
CPT/HCPCS: 99214

== ENCOUNTER → 2023-05-23 14:18 | Outpatient (BNVA) | payer MEDICARE, SELFPAY | PROVIDERS: PCP Internal Medicine; Visit Provider Internal Medicine | DX: K74.60 Unspecified cirrhosis of liver (principal); K76.82 Hepatic encephalopathy; K21.9 Gastro-esophageal reflux disease without esophagitis; E66.9 Obesity, unspecified; I50.9 Heart failure, unspecified; E11.9 Type 2 diabetes mellitus without complications; Z68.45 Body mass index [BMI] 70 or greater, adult | CPT/HCPCS: 99212 ==

== ENCOUNTER 2023-07-02 08:49 | Outpatient (AMB) | payer MEDICARE, SELFPAY ==
--- NOTE | 2023-07-02 08:52 | MHC.OFFVIS ---
Vital Signs 07/02/23 08:53 Height 5 ft 5 in Weight 260 lb 2.327 oz BMI 43.3 BP 122/59 L Blood Pressure Location Lt brachial Position Sitting Pulse 89 Intake Visit Reasons: 2 week follow up 30 mins Intake Note: Luis presents in the office as a 2 week follow up. CC: Lactulose increased from last ED stay - states that he was told to do is four times a day. Very loose bowel movements at this time. He has issues with vomiting. [facility] records. Urology Nurse Required: No Allergies No Known Allergies Allergy (Verified 07/02/23 08:56) HPI Comments Details: 77y.o M with PMH of reported heart failure, obesity BMI 46, RIK and recent dx of decompensated cirrhosis (hepatic encephalopathy), former smoker. 07/22/22: Had weight loss surgery 4 years ago during which cirrhosis of the liver was discovered. Has been seeing Dr Pascual, here for second opinion. 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 No hx of significant drinking. No fam or personal hx of autoimmune disease, iron overload, early pulmonary or neuropsychiatric diseases. Pt had first episode of hepatic encephalopathy 2 years ago for which he required hosp admission as well. Has been on lactulose. Does not recall developing ascites but does report significant leg edema on most days assoc with shortness of breath on exertion. Last EGD was 4 years ago prior to his surgery. Last US was 2 years ago when he had the hospitalisation. He also sees Dr Desir for cardiomyopathy. We do not have records to ascertain whether he has ischemic cardiomyopathy vs non-ischemic and if LV failure vs RV (raj as he report significant sleep apnea). Family hx: etOH cirrhosis in brother Records reviewed. Has large splenorenal shunt based on previous imaging at [facility]. If HE difficult to control with meds, may need IR referral for shunt embolization eval. However will need EGD before that for variceal surveillance. 09/02/22: Reports has been getting worsening shortness of breath especially on exertion and will be seeing a tailor women's garment alteration for further evaluation. Otherwise no gastrointestinal sx. Taking lactulose regularly now and has been having 2 BMs per day consistently. Reports improvement in alertness levels. Labs reviewed, somehow CMP and iron studies not processed. However remaining labs reassuring, no chronic hepatitis. Thrombocytopenia consistent with portal HTN. 12/10/22: EGD EGD Impressions:? Grade B esophagitis Hiatal hernia Portal hypertensive gastropathy Normal duodenum 03/21/23: Was admitted to [facility] in Dec 2022 for hepatic encephalopathy thought to be from UTI. Admitted for 5 days - was given ABx and lactulose dose was increased. reports this is his 1st hospitalization for hepatic encephalopathy. To note, patient has a known splenorenal shunt based on ultrasound and previous CAT scans. Current medications: Furosemide 60 mg Spironolactone 50 mg Lactulose 45+ 45+ 30 mL Patient reports discontinuation of carvedilol for more than 3 months, unaware of why it was discontinued. Today, reports that seems a bit off than his baseline. Does not report abd pain, nausea, vomiting, change in bowel habits. Has been taking his medications as above. Addendum to previous note on 05/15/23: MELD-Na 12 -- 6% 90d mortality Child Latif Class B - 8 points Has upcoming spinal decompression procedure with Dr Nascimento. Reviewed risk assessment over the phone on 05/15/23 as above. Avoid excess IVF - albumin preferred. Avoid opiates, benzos. Avoid sudden BP shifts to protect kidney function. Ok to give platelets and Vit K if needed. 05/23/23: Here for routine follow up. No further episodes of encoephalopathy since last seen. Rifaximin not approved by insurance but has been started on Zn supplements. Reviewed that did review his risk assessment with Dr Nascimento on 05/14. He tells me that also seeing Cardiology for clearance. 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 Reports intermittent heartburn. Labs and US results reviewed. 07/02/23: Here for post hospitalisation follow up. Had 2 back to back admission to [facility]. 05/28 - encephalopathy. Per pt's report also had kidney function that was impaired, was in ICU for a few days. They even held goals of care discussion for severe encephalopathy but pt turned around within a day and was eventually discharged around 06/02. 06/04 - UTI with GRETA. Discharged on PO Abx on 06/09 with Cr 1.1. Now on another course of Abx (Cuforexime) through PCP. Currently, reports persistent fatigue with shortness of breath. Getting PT twice a week since discharge. BG control remains suboptimal despite adjustment of meds - FBG is between 120-150 on most days albeit better than 180s. Current Meds: Furosemide 60 Spironolactone 50 Lactulose 60 TID PFSH Medical History Periodic limb movement disorder Chronic rhinitis Anxiety HTN (hypertension) Sleep apnea Spinal stenosis BPH (benign prostatic hyperplasia) Dilated aortic root Faintness Osteoarthritis of knee Lumbar radicular pain Pulmonary nodules Chronic pain of left knee Morbid obesity Vitamin D deficiency Anemia Intestinal malabsorption following gastrectomy Chronic pancreatitis Ureteral calculus, left DIALLO (nonalcoholic steatohepatitis) CHF (congestive heart failure) Diabetes Surgical History History of weight loss surgery Hx of appendectomy Hx of cholecystectomy History of esophagogastroduodenoscopy (EGD) Family History Mother HTN (hypertension) Social History Household Members: Spouse Patient Tobacco Use Status: Never used Tobacco Review of Systems Const All systems reviewed & are unremarkable except as noted in HPI and below Physical Exam Vital Signs: Last Vital Signs Pulse 89 07/02/23 08:53 BP 122/59 L 07/02/23 08:53 BMI result Body Mass Index 43.3 Elderly frail gent NAD, nonicteric A/Ox3, no asterixis mild pitting ASHVIN Assessment & Plan Assessment & Plan (1) Cirrhosis: Code(s): K74.60 - Unspecified cirrhosis of liver Category: Medical (2) Hepatic encephalopathy: Code(s): K76.82 - Hepatic encephalopathy Category: Medical (3) Obesity: Code(s): E66.9 - Obesity, unspecified Category: Medical (4) Heart failure: Code(s): I50.9 - Heart failure, unspecified Category: Medical (5) Diabetes: Code(s): E11.9 - Type 2 diabetes mellitus without complications Category: Medical (6) GERD (gastroesophageal reflux disease): Code(s): K21.9 - Gastro-esophageal reflux disease without esophagitis Category: Medical Plan 1. Decompensated cirrhosis MELD-Na 12 -- 6% 90d mortality Child Latif Class B - 8 points Etiology likely MAFLD/DIALLO given obesity, T2DM and HTN and possibly due to cardiac cirrhosis; in the absence of significant etOH use. No encephalopathy on exam today. Counseled on taking lactulose for goal 2-3 bowel movements per day, AVOID overuse as excessive diarrhea can also risk precipitating HE due to electrolyte balance and impaired kidney function. Zinc supplementation. Rifaximin not covered by insurance - pt and informed that also attempted pt assistance program back in Mar 2023 but due to medicare they do not qualify - will redo on their request. HE was precipitated by a trigger this time as well as last Nov. However if this becomes difficult to control or no underlying trigger identifed, low threshold to refer for IR evaluation for obliteration of splenorenal shunt. US Abd reviewed. Will cont q6m screenings. Plan: - continue lactulose, for goal 2-3 bowel movements every day. Avoid overuse as discussed above. - Zinc supplementation refilled. - Will re-submit paper work for pt assistance program for Xifaxan. - No change to diuretics at this time. Recheck BMP and adjust accordingly. - Pt to check with Resident Assistant Cna and PCP re ? holding carvedilol - has appt with PCP tmrw. If no reservations from their standpoint recommend resuming coreg 6.25 BID - Next EGD for variceal surveillance due 11/2024 - Next US for HCC screening due 11/2023 - Omeprazole 20mg PO once to be continued for GERD with esophagitis - Pt to review glycemic control with PCP as that could be contributing to frequent UTIs. A1c ordered. Follow-up in 3 months Orders: Orders Basic Metabolic Panel Today N17.9 - Acute kidney failure, unspecified Hemoglobin A1c Today E11.9 - Type 2 diabetes mellitus without complications Medications: New zinc gluconate 50 mg PO BID 30 days 60 tabs 2RF Refilled omeprazole 20 mg PO DAILY 90 caps 1RF Coding Level of Care Code Est Pt Level 5 (41199) Diagnoses Cirrhosis K74.60 Hepatic encephalopathy K76.82 Obesity E66.9 Heart failure I50.9 Diabetes E11.9 GERD (gastroesophageal reflux disease) K21.9
[2023-07-02 08:53] VITALS: BP 122/59; PULSE 89; BMI 43.3
== END 2023-07-02 10:38 | disposition home or self-care (01) ==
PROVIDERS: PCP Internal Medicine; Visit Provider Internal Medicine
DX: K74.60 Unspecified cirrhosis of liver (principal); K76.82 Hepatic encephalopathy; K21.9 Gastro-esophageal reflux disease without esophagitis; E11.9 Type 2 diabetes mellitus without complications
CPT/HCPCS: 99214

== ENCOUNTER 2023-07-02 08:49 | Outpatient (REF) | payer MEDICARE, SELFPAY ==
[2023-07-02 11:01] LABS: Appearance Urine Clear; Color Urine Yellow; Glucose Urine UA >=1000 mg/dL (Negative); Leukocyte Esterase Urine Trace (Negative); Nitrite Urine Negative (Negative); PH 5.5 (5.0-9.0); Specific Gravity - Urine 1.015 (1.005-1.025); UMIC TRIGGER UA YES; Urine Blood Negative (Negative); Urine Ketones Negative (Negative); Urine Protein Negative (Neg-Trace)
[2023-07-02 11:10] LABS: Bacteria Urine None Seen (None Seen); Hyaline Casts Urine 0-2 /LPF (0-2); RBC Urine 0-2 /HPF (0-2); Squamous Epithelial Cell Urine 0-2 /HPF (0-2); WBC Urine 0-5 /HPF (0-5)
[2023-07-02 11:21] LABS: Estimated Average Glucose 111 mg/dL; Hemoglobin A1c % 5.5 % (<6.0)
[2023-07-02 11:38] LABS: Anion Gap 14 (12-20); Blood Urea Nitrogen 22 mg/dL (9-16); Calcium 8.7 mg/dL (8.4-10.2); Carbon Dioxide 22 mmol/L (22-29); Chloride 104 mmol/L (96-108); Estimated Glomerular Filt Rate > 60; Glucose Random 195 mg/dL (60-115); Potassium 3.5 mmol/L (3.3-5.1); Sodium 136 mmol/L (135-145)
== END 2023-07-02 08:50 | disposition home or self-care (01) ==
LOC: HO.LAB 08:49
PROVIDERS: PCP Internal Medicine; Visit Provider Internal Medicine
DX: K74.60 Unspecified cirrhosis of liver (principal); E11.9 Type 2 diabetes mellitus without complications; K76.82 Hepatic encephalopathy; E66.9 Obesity, unspecified; I50.9 Heart failure, unspecified; K21.9 Gastro-esophageal reflux disease without esophagitis
CPT/HCPCS: 36415; 80048; 81001; 81003; 83036; 99212

== ENCOUNTER 2023-09-16 09:10 | Outpatient (REF) | payer MEDICARE, SELFPAY ==
--- NOTE | ~2023-09-16 | US_ITS ---
EXAMINATION: US ABDOMEN LIMITED WITH LIVER ELASTOGRAPHY CLINICAL INFORMATION: 9 alcohol steatohepatitis. COMPARISON: None available. TECHNIQUE: Real-time imaging of the abdominal viscera. Noninvasive ultrasound liver fibrosis assessment is performed using Megan ElastPQ point quantification shear wave elastography (pSWE) with a 5 MHz transducer. Multiple elastography samples are obtained. FINDINGS: PANCREAS: Largely obscured by overlapping bowel gas. LIVER: The liver demonstrates normal size, contour and course echogenicity. No focal lesion or intrahepatic biliary duct dilatation. The right lobe measures 15.0 cm in length. The left lobe is suboptimally visualized. Shear wave elastography provides a median stiffness of 1.38 m/s (reference: normal median stiffness is 0.81 - 1.22 m/s). The IQR/median stiffness to assess sampling precision is 0.20 (reference: optimal IQR/median stiffness is under 0.3). GALLBLADDER: Surgically absent. COMMON BILE DUCT: Normal in caliber measuring 0.5 cm in diameter. RIGHT KIDNEY: There are persistent lobulations. No hydronephrosis. No renal calculi or focal parenchymal lesions. The kidney measures 11.3 cm in maximum dimension. FREE FLUID: None. OTHER: Mid abdominal varices are questioned. US/US abdomen verma w elastography IMPRESSION: 1. There is coarse hepatic echotexture, consistent with fatty infiltration or hepatocellular disease. Please correlate clinically. No focal hepatic mass or intrahepatic biliary dilatation is seen. 2. Elastography: Although the liver elastography measurements are consistent with a minimal risk for clinically significant liver fibrosis (METAVIR Stage F0-F1), there is statistical variability of the sampling which decreases accuracy. 3. Technically limited evaluation, in particular of the pancreas and liver. Electronically signed by: Bc Campoverde MD 10/06/2023 04:07 PM EDT
[2023-09-16 10:26] LABS: MANUAL DIFF FLAG NO
[2023-09-16 10:55] LABS: INTERNATIONAL NORM RATIO 1.1 (0.9-1.1); Prothrombin Time 13.9 SEC (11.1-13.3)
[2023-09-16 10:56] LABS: Basophils Percent Auto 0.8 % (0-2); Eosinophils Absolute Auto 0.3 X10*3/uL (0.0-0.4); Eosinophils Percent Auto 8.6 % (0-4); Hematocrit 34.7 % (42.0-52.0); Hemoglobin 11.9 g/dl (14.0-18.0); Imm Gran Abs Auto 0.01 X10*3/uL (0.00-0.03); Imm Gran Pct Auto 0.3 % (0.0-0.4); Lymphocytes Absolute Auto 0.8 X10*3/uL (1.2-4.9); Lymphocytes Percent Auto 20.9 % (20-40); Mean Corpuscular HGB Conc 34.3 g/dl (31.0-36.0); Mean Corpuscular Hemoglobin 35.2 pg (27.0-33.0); Mean Corpuscular Volume 102.7 fL (80.0-98.0); Mean Platelet Volume 10.3 fL (9.4-12.4); Monocytes Absolute Auto 0.5 X10*3/uL (0.1-1.2); Monocytes Percent Auto 11.8 % (2-11); Neutrophils Absolute Auto 2.2 x10*3/uL (2.0-8.3); Neutrophils Percent Auto 57.6 % (45-73); Platelet Count 104 X10*3/uL (160-400); Red Blood Count 3.38 X10*6/uL (4.60-5.80); Red Cell Distribution Width 15.1 % (11.0-16.0); White Blood Count 3.8 X10*3/uL (4.8-10.8)
[2023-09-16 11:29] LABS: Alanine Aminotransferase 33 U/L (0-40); Albumin Level 2.9 g/dL (3.5-5.0); Alkaline Phosphatase 180 U/L (39-117); Anion Gap 11 (12-20); Aspartate Amino Transferase 36 U/L (5-37); Blood Urea Nitrogen 21 mg/dL (9-16); Calcium 8.8 mg/dL (8.4-10.2); Carbon Dioxide 28 mmol/L (22-29); Chloride 104 mmol/L (96-108); Estimated Glomerular Filt Rate > 60; Glucose Random 149 mg/dL (60-115); Potassium 4.6 mmol/L (3.3-5.1); Sodium 138 mmol/L (135-145)
[2023-09-16 11:45] LABS: Folate 7.1 ng/mL (> or = 4.0); Vitamin B12 830 pg/mL (200-900)
[2023-09-19 06:58] LABS: Zinc 61 mcg/dL (60-130)
== END 2023-09-16 09:11 | disposition home or self-care (01) ==
LOC: HO.US 09:10
PROVIDERS: PCP Internal Medicine; Visit Provider Internal Medicine Gastroenterology
DX: K75.81 Nonalcoholic steatohepatitis (NASH) (principal); K74.60 Unspecified cirrhosis of liver; K76.82 Hepatic encephalopathy
CPT/HCPCS: 36415; 76705; 76981; 80053; 82607; 82746; 84630; 85025; 85610

== ENCOUNTER 2023-09-26 14:22 | Outpatient (AMB) | payer MEDICARE, SELFPAY ==
[2023-09-26 14:51] VITALS: BP 124/56; PULSE 68; O2SAT 100; BMI 46.6
--- NOTE | 2023-09-26 14:51 | A.OFFVIS_ITS ---
Vital Signs 09/26/23 14:51 Height 5 ft 5 in Weight 280 lb BMI 46.6 BP 124/56 L Blood Pressure Location Lt brachial Position Sitting Pulse 68 Pulse Source Pulse Oximeter Pulse Oximetry (%) 100 Oxygen Delivery Method Room Air Intake Visit Reasons: 4 month follow up cirrhosis Intake Note: Pt presents to the office today for a 4 month follow up cirrhosis. Allergies No Known Allergies Allergy (Verified 09/26/23 16:32) HPI Comments Details: 77y.o M with PMH of reported heart failure, obesity BMI 46, RIK and recent dx of decompensated cirrhosis (hepatic encephalopathy), former smoker. 07/22/22: Had weight loss surgery 4 years ago during which cirrhosis of the liver was discovered. Has been seeing Dr Pascual, here for second opinion. 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 No hx of significant drinking. No fam or personal hx of autoimmune disease, iron overload, early pulmonary or neuropsychiatric diseases. Pt had first episode of hepatic encephalopathy 2 years ago for which he required hosp admission as well. Has been on lactulose. Does not recall developing ascites but does report significant leg edema on most days assoc with shortness of breath on exertion. Last EGD was 4 years ago prior to his surgery. Last US was 2 years ago when he had the hospitalisation. He also sees Dr Desir for cardiomyopathy. We do not have records to ascertain whether he has ischemic cardiomyopathy vs non-ischemic and if LV failure vs RV (raj as he report significant sleep apnea). Family hx: etOH cirrhosis in brother Records reviewed. Has large splenorenal shunt based on previous imaging at [facility]. If HE difficult to control with meds, may need IR referral for shunt embolization eval. However will need EGD before that for variceal surveillance. 09/02/22: Reports has been getting worsening shortness of breath especially on exertion and will be seeing a medical anthropology director for further evaluation. Otherwise no gastrointestinal sx. Taking lactulose regularly now and has been having 2 BMs per day consistently. Reports improvement in alertness levels. Labs reviewed, somehow CMP and iron studies not processed. However remaining labs reassuring, no chronic hepatitis. Thrombocytopenia consistent with portal HTN. 12/10/22: EGD EGD Impressions:? * Grade B esophagitis * Hiatal hernia * Portal hypertensive gastropathy * Normal duodenum 03/21/23: Was admitted to [facility] in Dec 2022 for hepatic encephalopathy thought to be from UTI. Admitted for 5 days - was given ABx and lactulose dose was increased. reports this is his 1st hospitalization for hepatic encephalopathy. To note, patient has a known splenorenal shunt based on ultrasound and previous CAT scans. Current medications: Furosemide 60 mg Spironolactone 50 mg Lactulose 45+ 45+ 30 mL Patient reports discontinuation of carvedilol for more than 3 months, unaware of why it was discontinued. Today, reports that seems a bit off than his baseline. Does not report abd pain, nausea, vomiting, change in bowel habits. Has been taking his medications as above. Addendum to previous note on 05/15/23: MELD-Na 12 -- 6% 90d mortality Child Latif Class B - 8 points Has upcoming spinal decompression procedure with Dr Nascimento. Reviewed risk assessment over the phone on 05/15/23 as above. Avoid excess IVF - albumin preferred. Avoid opiates, benzos. Avoid sudden BP shifts to protect kidney function. Ok to give platelets and Vit K if needed. 05/23/23: Here for routine follow up. No further episodes of encoephalopathy since last seen. Rifaximin not approved by insurance but has been started on Zn supplements. Reviewed that did review his risk assessment with Dr Nascimento on 05/14. He tells me that also seeing Cardiology for clearance. Still not sure why hes off carvedilol but will check with his first officer and flight instructor if ok to resume. Reports intermittent heartburn. Labs and US results reviewed. 07/02/23: Here for post hospitalisation follow up. Had 2 back to back admission to [facility]. 05/28 - encephalopathy. Per pt's report also had kidney function that was impaired, was in ICU for a few days. They even held goals of care discussion for severe encephalopathy but pt turned around within a day and was eventually discharged around 06/02. 06/04 - UTI with GRETA. Discharged on PO Abx on 06/09 with Cr 1.1. Now on another course of Abx (Cuforexime) through PCP. Currently, reports persistent fatigue with shortness of breath. Getting PT twice a week since discharge. BG control remains suboptimal despite adjustment of meds - FBG is between 120- 150 on most days albeit better than 180s. Current Meds: Furosemide 60 Spironolactone 50 Lactulose 60 TID 09/26/23: Here for follow up. Has been doing well since last visit. Was able to get rifaximin after another PA. Has also been started on Zinc. Had an admission at [facility] in August for UTI but no encephalopathy since modifying the regimen as above. Current meds: Furosemide 60 Spironolactone 50 Lactulose 30mg TID Xifaxan 550 BID Labs reviewed. Low alb and total protein. Pt with adequate PO intake however suspect lack of actiity leading to significant muscle wasting. They are also looking into transferring care over to [facility] for other specialties as well due to change in insurance that made [facility] out of network. [facility] Medical History Periodic limb movement disorder Chronic rhinitis Anxiety HTN (hypertension) Sleep apnea Spinal stenosis BPH (benign prostatic hyperplasia) Dilated aortic root Faintness Osteoarthritis of knee Lumbar radicular pain Pulmonary nodules Chronic pain of left knee Morbid obesity Vitamin D deficiency Anemia Intestinal malabsorption following gastrectomy Chronic pancreatitis Ureteral calculus, left DIALLO (nonalcoholic steatohepatitis) CHF (congestive heart failure) Diabetes Surgical History History of weight loss surgery Hx of appendectomy Hx of cholecystectomy History of esophagogastroduodenoscopy (EGD) Family History Mother HTN (hypertension) Social History Household Members: Spouse Patient Tobacco Use Status: Never used Tobacco Smoked in Last 30 Days: No Use of substances other than those prescribed or required for medical reasons: No Advance Directives: No Advance Directives Information Provided: No Review of Systems Const All systems reviewed & are unremarkable except as noted in HPI and below Physical Exam Vital Signs: Last Vital Signs Pulse 68 09/26/23 14:51 BP 124/56 L 09/26/23 14:51 Pulse Ox 100 09/26/23 14:51 Oxygen Delivery Method Room Air 09/26/23 14:51 BMI result Body Mass Index 46.6 Elderly frail gent NAD, nonicteric A/Ox3, no asterixis mild pitting ASHVIN Assessment & Plan Assessment & Plan (1) Cirrhosis: Code(s): K74.60 - Unspecified cirrhosis of liver Category: Medical (2) Hepatic encephalopathy: Code(s): K76.82 - Hepatic encephalopathy Category: Medical (3) Obesity: Code(s): E66.9 - Obesity, unspecified Category: Medical (4) Heart failure: Code(s): I50.9 - Heart failure, unspecified Category: Medical (5) Diabetes: Code(s): E11.9 - Type 2 diabetes mellitus without complications Category: Medical (6) GERD (gastroesophageal reflux disease): Code(s): K21.9 - Gastro-esophageal reflux disease without esophagitis Category: Medical Plan 1. Decompensated cirrhosis MELD-Na 12 -- 6% 90d mortality Child Latif Class B - 8 points Etiology likely MAFLD/DIALLO given obesity, T2DM and HTN and possibly due to cardiac cirrhosis; in the absence of significant etOH use. No encephalopathy or significant ascites on exam today. No chanegs to be made to diuretics. Promising response to combination of lactulose+rifaximin+zinc. Have zero copay for rifaximin now. Has known splenorenal shunt but HE satisfactorily managed medically for now. US Abd completed but not read. Plan: - continue lactulose, for goal 2-3 bowel movements every day. Avoid overuse as discussed above. - Zinc supplementation. - Cont Xifaxan 550 BID - No change to diuretics at this time. - Start carvedilol 3.25 BID - Next EGD for variceal surveillance due 11/2024 - US read pending. Msg sent to OR. - Omeprazole 20mg PO once to be continued for GERD with esophagitis - Increase physical activity. - Add a night time snack to avoid inadvertent fasting Follow up 4 months -- MELD labs to done before next visit. Reminder set. Orders: Orders Complete Blood Count no Diff 4 Months K74.60 - Unspecified cirrhosis of liver Prothrombin Time INR 4 Months K74.60 - Unspecified cirrhosis of liver Comprehensive Met. Panel 4 Months K74.60 - Unspecified cirrhosis of liver Medications: New carvedilol must administer with a meal/food 3.125 mg PO BID 30 days 60 tabs 2RF Coding Level of Care Code Est Pt Level 4 (24018) Diagnoses Cirrhosis K74.60 Hepatic encephalopathy K76.82 Obesity E66.9 Heart failure I50.9 Diabetes E11.9 GERD (gastroesophageal reflux disease) K21.9
== END 2023-09-26 15:36 | disposition home or self-care (01) ==
PROVIDERS: PCP Internal Medicine; Visit Provider Internal Medicine
DX: K74.60 Unspecified cirrhosis of liver (principal); K76.82 Hepatic encephalopathy; E66.9 Obesity, unspecified; I50.9 Heart failure, unspecified; E11.9 Type 2 diabetes mellitus without complications; K21.9 Gastro-esophageal reflux disease without esophagitis
CPT/HCPCS: 99214

== ENCOUNTER 2023-09-26 15:39 | Emergency (ER) | payer MEDICARE, SELFPAY ==
--- NOTE | ~2023-09-26 | US_ITS ---
EXAMINATION: US VENOUS WITH DOPPLER UPPER EXTREMITY, RIGHT CLINICAL INFORMATION: Pain. COMPARISON: None available. TECHNIQUE: Ultrasound of the upper extremity is performed using compression sonography and color and pulse Doppler flow with assessment of augmentation of flow. There is also imaging and Doppler assessment of the jugular and subclavian veins. Spectral analysis with color-flow imaging is performed. FINDINGS: Respiratory variation, normal compression, and augmented flow are noted throughout the upper extremity including the axillary, brachial, cubital, and radial and ulnar veins. There is normal flow in the internal jugular and subclavian veins. There is no visible deep or superficial thrombophlebitis. If the patient's symptoms progress, a followup ultrasound in 5 -7 days might be of value to exclude proximal propagation from a nonvisualized distal arm vein. US/US venous duplex UE RT IMPRESSION: No DVT demonstrated in the right upper extremity.
--- NOTE | ~2023-09-26 | XR_ITS ---
EXAMINATION: XR SHOULDER, RIGHT CLINICAL INFORMATION: Tenderness. No trauma. Pain. COMPARISON: None available. TECHNIQUE: Three views of the right shoulder. FINDINGS: There is no fracture or dislocation. There are mild degenerative changes of the glenohumeral joint characterized by joint space narrowing, subchondral sclerosis, and marginal osteophytosis. There is moderate degenerative disease of the acromioclavicular joint. The regional soft tissue is normal in appearance. The right lung is clear. XR/XR shoulder RT min 2V IMPRESSION: No fracture or dislocation. Degenerative changes of the glenohumeral and acromioclavicular joints.
[2023-09-26 16:27] VITALS: BP 128/52; PULSE 66; RESP 18; TEMP 36.8; O2SAT 99; BMI 46.6
--- NOTE | 2023-09-26 16:27 | ED_ITS ---
HPI - Extremity Injury (Upper) General Chief Complaint: General Medical Stated Complaint: R arm pain, no injury Time Seen by Provider: 09/26/23 18:12 History of Present Illness ED Provider: Hernesto GOTTI narrative: The patient is a 78-year-old male who has been having pain in the region of his right upper arm or shoulder for about 10 days or more. There has been no trauma. He had no fall. He cannot think of any strain or stress that he might have put on the arm. He does use the arm for holding his cane when he walks. He has a visiting nurse who saw him yesterday and advised him to come to the emergency room to make sure he does not have a blood clot in his arm. He therefore came to the emergency room today. He has had no fever, sweats, chills. Related Data Home Medications ?Medication ?Instructions ?Recorded ?Confirmed atorvastatin 10 mg tablet 10 mg PO DAILY 07/22/22 12/10/22 citalopram 40 mg tablet 40 mg PO DAILY 07/22/22 12/10/22 spironolactone 50 mg tablet 50 mg PO DAILY 07/22/22 12/10/22 tamsulosin 0.4 mg capsule 0.8 mg PO DAILY 07/22/22 12/10/22 furosemide 20 mg tablet 60 mg PO DAILY 09/02/22 12/10/22 blood sugar diagnostic (OneTouch #10 ea 05/23/23 Ultra Test strips) glipizide 2.5 mg tablet, extended 5 mg PO BID 09/26/23 release 24 hr pantoprazole 20 mg tablet,delayed 20 mg PO DAILY 09/26/23 release Previous Rx's ?Medication ?Instructions ?Recorded rifaximin 550 mg tablet 550 mg PO BID 30 days #60 tabs 03/24/23 lactulose 10 gram/15 mL oral 45 ml PO TID #8,514 mL 08/05/23 solution zinc gluconate 50 mg tablet 50 mg PO BID 90 days #180 tabs 09/22/23 carvedilol 3.125 mg tablet 3.125 mg PO BID 30 days #60 tabs 09/26/23 Allergies Allergy/AdvReac Type Severity Reaction Status Date / Time No Known Allergies Allergy Verified 09/26/23 16:32 Review of Systems 2 Review of Systems: Yes all other systems are reviewed and are negative PMF Past Medical History Medical History Periodic limb movement disorder Chronic rhinitis Anxiety HTN (hypertension) Sleep apnea Spinal stenosis BPH (benign prostatic hyperplasia) Dilated aortic root Faintness Osteoarthritis of knee Lumbar radicular pain Pulmonary nodules Chronic pain of left knee Morbid obesity Vitamin D deficiency Anemia Intestinal malabsorption following gastrectomy Chronic pancreatitis Ureteral calculus, left DIALLO (nonalcoholic steatohepatitis) CHF (congestive heart failure) Diabetes Surgical History History of weight loss surgery Hx of appendectomy Hx of cholecystectomy History of esophagogastroduodenoscopy (EGD) Family History Family History Mother HTN (hypertension) Social History Social History Household Members: Spouse Patient Tobacco Use Status: Never used Tobacco Smoked in Last 30 Days: No Use of substances other than those prescribed or required for medical reasons: No Advance Directives: No Advance Directives Information Provided: No Physical Exam 2 Vital Signs: Vital Signs: Last Vital Signs Temp 97.3 F 09/26/23 20:07 Pulse 72 09/26/23 20:07 Resp 16 09/26/23 20:07 BP 126/58 L 09/26/23 20:07 Pulse Ox 99 09/26/23 20:07 O2 Del Method Room Air 09/26/23 20:07 BMI result Body Mass Index 46.6 Const: Other: The patient is a 78-year-old male. He is quite chronically ill-appearing. He does not necessarily appear acutely ill however. HEENT: Other: Face is symmetrical. Mucous membranes moist. Eyes: Other: Pupils are round equal, conjunctivae are clear, extraocular movements intact Neck: Neck: Yes no JVD Resp: Effort & Inspection: normal respiratory effort Auscultation: clear to auscultation bilaterally Cardio: Rate: regular rate Rhythm: regular rhythm Heart sounds: S1 normal heart sound present and S2 normal heart sound present Skin: Other: The skin of the arm is dry and unremarkable. Neuro: Other: The patient is awake and alert with a normal mental status. Cranial nerves are grossly intact. He has intact strength and sensation in the right hand. He cannot lift the arm at the shoulder secondary to pain however. It does not seem that he has any definite weakness which is not associated with pain. Extrem: Other: The patient has tenderness about the anterior shoulder and proximal anterior humerus. He seems particularly tender along the course of the proximal biceps tendon. Excellent radial pulse in the right wrist. Course Course Course Narrative: This is a Rapid Medical Exam performed in triage by Flora Galindo PA-C. Full HPI, ROS and PE to be performed by primary ED provider. 78 year-old M w/ PMHx DM, GERD, CHF, Cirrhosis presenting to the ED c/o atraumatic RUE pain x 1.5wks. denies CP, new or worsening CP, hx clots. sent in by PCP/visiting nurse for rule out blood clot PE: No appreciable deformity. nop swelling, NV intact. +ttp to humerus Plan: EKG, Labs, US Medical Decision Making Medical Decision Making MDM Narrative: The patient is a 78-year-old male who presents for evaluation of right upper arm or shoulder pain. An ultrasound of the arm was done prior to my evaluation was negative for DVT. On my exam the patient has pain seems to be centered around the proximal anterior right humerus. His physical exam is highly suggestive of a biceps tendonitis. A shoulder x-ray is negative. Clinically I suspect this is a case of biceps tendonitis. He will be given a sling for comfort. He should follow up with his PCP or Orthopedics. Lab Data 09/26/23 17:31 09/26/23 17:31 Labs: Lab Results 09/26/23 Range/Units 17:31 WBC 4.9 (4.8-10.8) X10*3/uL RBC 3.39 L (4.60-5.80) X10*6/uL Hgb 12.2 L (14.0-18.0) g/dl Hct 34.4 L (42.0-52.0) % MCV 101.5 H (80.0-98.0) fL MCH 36.0 H (27.0-33.0) pg MCHC 35.5 (31.0-36.0) g/dl RDW 15.4 (11.0-16.0) % Plt Count 119 L (160-400) X10*3/uL MPV 9.8 (9.4-12.4) fL Immature Gran % (Auto) 0.2 (0.0-0.4) % Neut % (Auto) 57.6 (45-73) % Lymph % (Auto) 19.8 L (20-40) % Hinds % (Auto) 15.7 H (2-11) % Eos % (Auto) 5.9 H (0-4) % Baso % (Auto) 0.8 (0-2) % Lymph # (Auto) 1.0 L (1.2-4.9) X10*3/uL Hinds # (Auto) 0.8 (0.1-1.2) X10*3/uL Eos # (Auto) 0.3 (0.0-0.4) X10*3/uL Baso # (Auto) 0.0 (0.0-0.2) X10*3/uL Abs Immat Gran (auto) 0.01 (0.00-0.03) X10*3/uL Absolute Neuts (auto) 2.8 (2.0-8.3) x10*3/uL Absolute Nucleated RBC 0.000 (0.0-0.012) X10*3/uL Nucleated RBC % (auto) 0.0 (0.0-0.2) /100WBC Sodium 140 (135-145) mmol/L Potassium 4.8 (3.3-5.1) mmol/L Chloride 105 (96-108) mmol/L Carbon Dioxide 25 (22-29) mmol/L Anion Gap 15 (12-20) BUN 25 H (9-16) mg/dL Creatinine 0.99 (0.5-1.4) mg/dL Estim Creat Clear Calc 76.2 Estimated GFR > 60 Random Glucose 123 H (60-115) mg/dL Calcium 8.8 (8.4-10.2) mg/dL Total Bilirubin 1.6 H (0.0-1.0) mg/dL Direct Bilirubin 0.6 H (0.0-0.5) mg/dL AST 35 (5-37) U/L ALT 31 (0-40) U/L Alkaline Phosphatase 190 H (39-117) U/L Troponin I High Sens 3.9 (<3.5-35.0) ng/L Total Protein 6.2 L (6.5-8.0) g/dL Albumin 2.9 L (3.5-5.0) g/dL Discharge Plan Discharge Clinical Impression: Biceps tendinitis of right shoulder Patient Disposition: Home, Self-Care Instructions: Tendinitis (ED) Additional Instructions: I believe that your right upper arm pain is the result of a condition called biceps tendinitis. There is no sign of a blood clot. Please wear the sling provided for comfort. You may take 400 mg of ibuprofen no more than 2 times a day as needed for pain. Apply an ice pack to the shoulder for 10-15 minutes a few times a day. This may bring some relief. Please follow up with the orthopedic doctor and also with your primary care doctor to discuss this syndrome further. Return to the emergency room if significantly worse. Prescriptions: No Action lactulose 10 gram/15 mL solution 45 ml PO TID Qty: 8514 8RF zinc gluconate 50 mg tablet 50 mg PO BID 90 Days Qty: 180 2RF rifaximin 550 mg tablet 550 mg PO BID 30 Days Qty: 60 3RF (DME) OneTouch Ultra Test Strip See Rx Instructions .ROUTE DAILY Qty: 10 Rx Instructions: As directed pantoprazole 20 mg tablet,delayed release (DR/EC) 20 mg PO DAILY carvedilol 3.125 mg tablet 3.125 mg PO BID 30 Days Qty: 60 2RF Rx Instructions: must administer with a meal/food tamsulosin 0.4 mg capsule 0.8 mg PO DAILY atorvastatin 10 mg tablet 10 mg PO DAILY citalopram 40 mg tablet 40 mg PO DAILY spironolactone 50 mg tablet 50 mg PO DAILY furosemide 20 mg tablet 60 mg PO DAILY glipizide 2.5 mg tablet extended release 24hr 5 mg PO BID Referrals: Jose M Delacruz MD [Physician] - (Biceps tendinitis) Wallace Reid MD [Primary Care Provider] - (bicepps tendinitis) Interventions: ED Discharge Assessment Last Done: 09/26/23 20:07 Discharge Date/Time: 09/26/23 20:09 Print Language: [place]
--- NOTE | 2023-09-26 16:29 | ECG_ITS ---
Test Reason : RIGHT ARM PAIN Blood Pressure : / mmHG Vent. Rate : 078 BPM Atrial Rate : 000 BPM P-R Int : 000 ms QRS Dur : 084 ms QT Int : 444 ms P-R-T Axes : 000 -12 021 degrees QTc Int : 506 ms Normal sinus rhythm with 1st degree A-V block Nonspecific ST abnormality Prolonged QT Abnormal ECG No previous ECGs available Referred By: Flora Galindo Electronically Signed By:FANG CHANEL
[2023-09-26 17:36] LABS: MANUAL DIFF FLAG NO
[2023-09-26 17:52] LABS: Alanine Aminotransferase 31 U/L (0-40); Albumin Level 2.9 g/dL (3.5-5.0); Alkaline Phosphatase 190 U/L (39-117); Anion Gap 15 (12-20); Aspartate Amino Transferase 35 U/L (5-37); Bilirubin Direct 0.6 mg/dL (0.0-0.5); Bilirubin Total 1.6 mg/dL (0.0-1.0); Blood Urea Nitrogen 25 mg/dL (9-16); Calcium 8.8 mg/dL (8.4-10.2); Carbon Dioxide 25 mmol/L (22-29); Chloride 105 mmol/L (96-108); Creatinine Clr Calc Pharmacy 76.2; Estimated Glomerular Filt Rate > 60; Glucose Random 123 mg/dL (60-115); Potassium 4.8 mmol/L (3.3-5.1); Sodium 140 mmol/L (135-145); Total Protein 6.2 g/dL (6.5-8.0)
[2023-09-26 17:56] LABS: Basophils Percent Auto 0.8 % (0-2); Eosinophils Absolute Auto 0.3 X10*3/uL (0.0-0.4); Eosinophils Percent Auto 5.9 % (0-4); Hematocrit 34.4 % (42.0-52.0); Hemoglobin 12.2 g/dl (14.0-18.0); Imm Gran Abs Auto 0.01 X10*3/uL (0.00-0.03); Imm Gran Pct Auto 0.2 % (0.0-0.4); Lymphocytes Percent Auto 19.8 % (20-40); Mean Corpuscular HGB Conc 35.5 g/dl (31.0-36.0); Mean Corpuscular Volume 101.5 fL (80.0-98.0); Mean Platelet Volume 9.8 fL (9.4-12.4); Monocytes Absolute Auto 0.8 X10*3/uL (0.1-1.2); Monocytes Percent Auto 15.7 % (2-11); Neutrophils Absolute Auto 2.8 x10*3/uL (2.0-8.3); Neutrophils Percent Auto 57.6 % (45-73); Platelet Count 119 X10*3/uL (160-400); Red Blood Count 3.39 X10*6/uL (4.60-5.80); Red Cell Distribution Width 15.4 % (11.0-16.0); White Blood Count 4.9 X10*3/uL (4.8-10.8)
[2023-09-26 17:59] LABS: Troponin-I High Sensitivity 3.9 ng/L (<3.5-35.0)
[2023-09-26 20:07] VITALS: BP 126/58; PULSE 72; RESP 16; TEMP 36.3; O2SAT 99
== END 2023-09-26 20:09 | disposition home or self-care (01) ==
PROVIDERS: Physician Assistant; Emergency Provider Emergency Medicine; PCP Internal Medicine
DX: M75.21 Bicipital tendinitis, right shoulder (principal); M79.601 Pain in right arm
CPT/HCPCS: 36415; 73030; 80048; 80076; 84484; 85025; 93005; 93971; 99212; 99284

== ENCOUNTER 2023-12-01 12:41 | Outpatient (REF) | payer MEDICARE, SELFPAY ==
[2023-12-01 14:42] LABS: Hematocrit 32.1 % (42.0-52.0); Hemoglobin 11.5 g/dl (14.0-18.0); Mean Corpuscular HGB Conc 35.8 g/dl (31.0-36.0); Mean Corpuscular Hemoglobin 37.6 pg (27.0-33.0); Mean Corpuscular Volume 104.9 fL (80.0-98.0); Mean Platelet Volume 9.6 fL (9.4-12.4); Platelet Count 111 X10*3/uL (160-400); Red Blood Count 3.06 X10*6/uL (4.60-5.80); White Blood Count 5.1 X10*3/uL (4.8-10.8)
[2023-12-01 14:45] LABS: INTERNATIONAL NORM RATIO 1.1 (0.9-1.1); Prothrombin Time 13.3 SEC (10.9-12.4)
[2023-12-01 14:46] LABS: Appearance Urine Clear; Color Urine Yellow; Glucose Urine UA Negative (Negative); Leukocyte Esterase Urine Small (1+) (Negative); Nitrite Urine Negative (Negative); PH 5.5 (5.0-9.0); UMIC TRIGGER UA YES; Urine Blood Negative (Negative); Urine Ketones Negative (Negative); Urine Protein Negative (Neg-Trace)
[2023-12-01 14:55] LABS: Bacteria Urine 1+ (None Seen); Hyaline Casts Urine 0-2 /LPF (0-2); RBC Urine 0-2 /HPF (0-2); Squamous Epithelial Cell Urine 0-2 /HPF (0-2); WBC Urine 0-5 /HPF (0-5)
[2023-12-01 15:05] LABS: Alanine Aminotransferase 41 U/L (0-40); Albumin Level 2.9 g/dL (3.5-5.0); Alkaline Phosphatase 148 U/L (39-117); Anion Gap 9 (12-20); Aspartate Amino Transferase 45 U/L (5-37); Bilirubin Total 2.1 mg/dL (0.0-1.0); Blood Urea Nitrogen 28 mg/dL (9-16); Calcium 8.7 mg/dL (8.4-10.2); Carbon Dioxide 28 mmol/L (22-29); Chloride 108 mmol/L (96-108); Estimated Glomerular Filt Rate > 60; Glucose Random 139 mg/dL (60-115); Magnesium 1.9 mg/dL (1.6-2.6); Potassium 4.5 mmol/L (3.3-5.1); Sodium 140 mmol/L (135-145); Total Protein 5.8 g/dL (6.5-8.0)
== END 2023-12-01 12:42 | disposition home or self-care (01) ==
LOC: HO.LAB 12:41
PROVIDERS: PCP Internal Medicine; Visit Provider Internal Medicine
DX: K74.60 Unspecified cirrhosis of liver (principal); K76.82 Hepatic encephalopathy; E66.9 Obesity, unspecified; I50.9 Heart failure, unspecified; E11.9 Type 2 diabetes mellitus without complications; K21.9 Gastro-esophageal reflux disease without esophagitis
CPT/HCPCS: 36415; 80053; 81001; 83735; 85027; 85610; 99212

== ENCOUNTER 2023-12-01 12:41 | Outpatient (AMB) | payer MEDICARE, SELFPAY ==
--- NOTE | 2023-12-01 12:46 | A.OFFVIS_ITS ---
Vital Signs 12/01/23 12:49 Height 5 ft 5 in Weight 264 lb 15.93 oz BMI 44.1 BP 120/58 L Blood Pressure Location Lt brachial Position Sitting Pulse 56 Intake Visit Reasons: follow up per dr luevano - ammonia levels Intake Note: Patient in office today in follow up of labs. CC: Patient reports one episode of vomiting since his last visit. He also complains of back pain from his spinal stenosis. Denies other GI concerns today. Diet Counselor Required: No Allergies No Known Allergies Allergy (Verified 12/01/23 12:59) HPI Comments Details: 77y.o M with PMH of reported heart failure, obesity BMI 46, RIK and recent dx of decompensated cirrhosis (hepatic encephalopathy), former smoker. 07/22/22: Had weight loss surgery 4 years ago during which cirrhosis of the liver was discovered. Has been seeing Dr Pascual, here for second opinion. 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 No hx of s ignificant drinking. No fam or personal hx of autoimmune disease, iron overload, early pulmonary or neuropsychiatric diseases. Pt had first episode of hepatic encephalopathy 2 years ago for which he required hosp admission as well. Has been on lactulose. Does not recall developing ascites but does report significant leg edema on most days assoc with shortness of breath on exertion. Last EGD was 4 years ago prior to his surgery. Last US was 2 years ago when he had the hospitalisation. He also sees Dr Desir for cardiomyopathy. We do not have records to ascertain whether he has ischemic cardiomyopathy vs non-ischemic and if LV failure vs RV (raj as he report significant sleep apnea). Family hx: etOH cirrhosis in brother Records reviewed. Has large splenorenal shunt based on previous imaging at [facility]. If HE difficult to control with meds, may need IR referral for shunt embolization eval. However will need EGD before that for variceal surveillance. 09/02/22: Reports has been getting worsening shortness of breath especially on exertion and will be seeing a automotive painter helper for further evaluation. Otherwise no gastrointestinal sx. Taking lactulose regularly now and has been having 2 BMs per day consistently. Reports improvement in alertness levels. Labs reviewed, somehow CMP and iron studies not processed. However remaining labs reassuring, no chronic hepatitis. Thrombocytopenia consistent with portal HTN. 12/10/22: EGD EGD Impressions:? * Grade B esophagitis * Hiatal hernia * Portal hypertensive gastropathy * Normal duodenum 03/21/23: Was admitted to [facility] in Dec 2022 for hepatic encephalopathy thought to be from UTI. Admitted for 5 days - was given ABx and lactulose dose was increased. reports this is his 1st hospitalization for hepatic encephalopathy. To note, patient has a known splenorenal shunt based on ultrasound and previous CAT scans. Current medications: Furosemide 60 mg Spironolactone 50 mg Lactulose 45+ 45+ 30 mL Patient reports discontinuation of carvedilol for more than 3 months, unaware of why it was discontinued. Today, reports that seems a bit off than his baseline. Does not report abd pain, nausea, vomiting, change in bowel habits. Has been taking his medications as above. Addendum to previous note on 05/15/23: MELD-Na 12 -- 6% 90d mortality Child Latif Class B - 8 points Has upcoming spinal decompression procedure with Dr Nascimento. Reviewed risk assessment over the phone on 05/15/23 as above. Avoid excess IVF - albumin preferred. Avoid opiates, benzos. Avoid sudden BP shifts to protect kidney function. Ok to give platelets and Vit K if needed. 05/23/23: Here for routine follow up. No further episodes of encoephalopathy since last seen. Rifaximin not approved by insurance but has been started on Zn supplements. Reviewed that did review his risk assessment with Dr Nascimento on 05/14. He tells me that also seeing Cardiology for clearance. Still not sure why hes off carvedilol but will check with his scrubber system attendant if ok to resume. Reports intermittent heartburn. Labs and US results reviewed. 07/02/23: Here for post hospitalisation follow up. Had 2 back to back admission to [facility]. 05/28 - encephalopathy. Per pt's report also had kidney function that was impaired, was in ICU for a few days. They even held goals of care discussion for severe encephalopathy but pt turned around within a day and was eventually discharged around 06/02. 06/04 - UTI with GRETA. Discharged on PO Abx on 06/09 with Cr 1.1. Now on another course of Abx (Cuforexime) through PCP. Currently, reports persistent fatigue with shortness of breath. Getting PT twice a week since discharge. BG control remains suboptimal despite adjustment of meds - FBG is between 120- 150 on most days albeit better than 180s. Current Meds: Furosemide 60 Spironolactone 50 Lactulose 60 TID 09/26/23: Here for follow up. Has been doing well since last visit. Was able to get rifaximin after another PA. Has also been started on Zinc. Had an admission at [facility] in August for UTI but no encephalopathy since modifying the regimen as above. Current meds: Furosemide 60 Spironolactone 50 Lactulose 30mg TID Xifaxan 550 BID Labs reviewed. Low alb and total protein. Pt with adequate PO intake however suspect lack of actiity leading to significant muscle wasting. They are also looking into transferring care over to [facility] for other specialties as well due to change in insurance that made [facility] out of network. 12/01/23: Had further admissions to [facility] for fall and hepatic encephalopathy. Was diagnosed with possible UTI the first time but no identifiable etiology of HE on most recent admission. Doing ok past few weeks. has been getting ammonia levels monitored through interval labs. Interestingly elastography estimates F1. Current meds: furosemide 60 spironlactone 50 lactulose 30 TID rifaximin coreg 3.25 BID zinc BID PFSH Medical History Periodic limb movement disorder Chronic rhinitis Anxiety HTN (hypertension) Sleep apnea Spinal stenosis BPH (benign prostatic hyperplasia) Dilated aortic root Faintness Osteoarthritis of knee Lumbar radicular pain Pulmonary nodules Chronic pain of left knee Morbid obesity Vitamin D deficiency Anemia Intestinal malabsorption following gastrectomy Chronic pancreatitis Ureteral calculus, left DIALLO (nonalcoholic steatohepatitis) CHF (congestive heart failure) Diabetes Surgical History History of weight loss surgery Hx of appendectomy Hx of cholecystectomy History of esophagogastroduodenoscopy (EGD) Family History Mother HTN (hypertension) Social History Household Members: Spouse Patient Tobacco Use Status: Never used Tobacco Review of Systems Const All systems reviewed & are unremarkable except as noted in HPI and below Physical Exam Vital Signs: Last Vital Signs Pulse 56 12/01/23 12:49 BP 120/58 L 12/01/23 12:49 BMI result Body Mass Index 44.1 No apparent distress Seated in wheelchair Nonicteric Abdomen soft, nondistended Alert and oriented x3, able to answer questions appropriately, no asterixis Assessment & Plan Assessment & Plan (1) Cirrhosis: Code(s): K74.60 - Unspecified cirrhosis of liver Category: Medical (2) Hepatic encephalopathy: Code(s): K76.82 - Hepatic encephalopathy Category: Medical (3) Obesity: Code(s): E66.9 - Obesity, unspecified Category: Medical (4) Heart failure: Code(s): I50.9 - Heart failure, unspecified Category: Medical (5) Diabetes: Code(s): E11.9 - Type 2 diabetes mellitus without complications Category: Medical (6) GERD (gastroesophageal reflux disease): Code(s): K21.9 - Gastro-esophageal reflux disease without esophagitis Category: Medical Plan 1. Decompensated cirrhosis MELD-Na 12 -- 6% 90d mortality Child Latif Class B - 8 points Etiology likely MAFLD/DIALLO given obesity, T2DM and HTN and possibly due to cardiac cirrhosis; in the absence of significant etOH use. No encephalopathy or significant ascites on exam today but has had multiple admissions to [facility] for HE which in turn seems to be triggered by urosepsis most of the times. No chanegs to be made to diuretics. He is on combination of lactulose+rifaximin+zinc. Has known splenorenal shunt and reviewed referral to IR for consideration of obliteration. Will need variceal screen prior to this. Will also review indication for liver bx +/- transplant raj given elastography findings that raise question of noncirrhotic PH. Plan: - continue lactulose, for goal 2-3 bowel movements every day. Avoid overuse as discussed above. - Zinc supplementation. - Cont Xifaxan 550 BID - Cont carvedilol 3.25 BID - No change to diuretics at this time but will get updated BMP with the remaining MELD labs - Msg sent to book EGD - HCC screeninng: Next US due Mar 2024. - Omeprazole 20mg PO once to be continued for GERD with esophagitis - Add a night time snack to avoid inadvertent fasting - Low MELD, but decompensated with multiple admission for HE. Transplant hep consultation to be discussed with pt and . Follow up after EGD Orders: Orders Comprehensive Met. Panel 12/01/23 K74.60 - Unspecified cirrhosis of liver Magnesium 12/01/23 K74.60 - Unspecified cirrhosis of liver Complete Blood Count no Diff 12/01/23 K74.60 - Unspecified cirrhosis of liver Prothrombin Time INR 12/01/23 K74.60 - Unspecified cirrhosis of liver Coding Level of Care Code Est Pt Level 4 (95719) Complex EM visit Add On G2211 Diagnoses Cirrhosis K74.60 Hepatic encephalopathy K76.82 Obesity E66.9 Heart failure I50.9 Diabetes E11.9 GERD (gastroesophageal reflux disease) K21.9
[2023-12-01 12:49] VITALS: BP 120/58; PULSE 56; BMI 44.1
== END 2023-12-01 13:43 | disposition home or self-care (01) ==
PROVIDERS: PCP Internal Medicine; Visit Provider Internal Medicine
DX: K74.60 Unspecified cirrhosis of liver (principal); K76.82 Hepatic encephalopathy; E66.9 Obesity, unspecified; I50.9 Heart failure, unspecified; E11.9 Type 2 diabetes mellitus without complications; K21.9 Gastro-esophageal reflux disease without esophagitis
CPT/HCPCS: 99214; G2211